=== PATIENT | male | born 1985 | race Caucasian/White ===

== ENCOUNTER 2018-09-01 07:04 | Emergency (ER) | payer SELFPAY ==
[~2018-09-01] VITALS: Ht 185.4 cm; Wt 72.6 kg
[2018-09-01 07:20] VITALS: BP 146/81
--- NOTE | 2018-09-01 08:15 | PHYS DOC ---
Past Medical History Past Medical History: Bipolar Past Surgical History: Other Additional Past Surgical Histo: ANKLE Alcohol Use: Heavy Drug Use: None Adult General Chief Complaint Chief Complaint: MEDICATION REFILL HPI HPI 33-year-old male presents to ER with request for refills on his anxiety and antipsychotic medications. Patient has tried multiple phone calls to family members to get a list of his medications however he has not been able to reach anyone by phone. Patient is uncertain of medications he takes. Patient denies any suicidal ideations. Patient has been anxious during his ER visit however has had no uncontrollable behavior. Patient denies any pain. Patient denies primary care physician. Review of Systems Review of Systems Constitutional: Denies fever or chills [] Eyes: Denies change in visual acuity, redness, or eye pain [] HENT: Denies nasal congestion or sore throat [] Respiratory: Denies cough or shortness of breath [] Cardiovascular: Denies CP/palpitations GI: Denies abdominal pain, nausea, vomiting, or diarrhea [] Integument: Denies rash or skin lesions [] Neurologic: Denies headache, focal weakness or sensory changes [] Psych: Reports anxiety- denies depression/SI All other systems were reviewed and found to be within normal limits, except as documented in this note. Allergies Allergies Allergies Coded Allergies Type Severity Reaction Last Updated Verified No Known Drug Allergies 09/01/18 No Physical Exam Physical Exam Constitutional: Well developed, well nourished, no acute distress, non-toxic appearance. [] HENT: Normocephalic, atraumatic, oropharynx moist, no oral exudates, nose normal. [] Eyes: 4mm PERRLA, no nystagmus, conjunctiva normal, no discharge. [] Neck: Normal range of motion, supple Cardiovascular: Heart rate regular rhythm, no murmur [] Lungs & Thorax: Resp. equal/nonlabored Abdomen: Bowel sounds normal, soft, no tenderness, no masses, no pulsatile masses. [] Skin: Warm, dry, no erythema, no rash. [] Extremities: ROM intact, no edema. [] Neurologic: Alert and oriented X 3, normal motor function, normal sensory function, no focal deficits noted. Steady gait at bedside Psychologic: Affect normal, judgement normal, mood normal. No uncontrollable behavior[] Current Patient Data Vital Signs Vital Signs Date Time Temp Pulse Resp B/P (MAP) Pulse Ox O2 Delivery O2 Flow Rate FiO2 09/01/18 07:20 98.1 100 18 146/81 (102) 98 Room Air 98.1 EKG EKG [] Radiology/Procedures Radiology/Procedures [] Course & Med Decision Making Course & Med Decision Making Pt was provided with phone while in the ER to attempt to contact his family for list of his medications. Patient was unsuccessful in reaching any of his family members. Patient continues to deny any suicidal ideations. Patient is cooperative during his exam. Discussed with no list of medications no refills would be provided at this time. Patient verbalizes understanding on this. Will provide [facility] and physician referral information with discharge paperwork. At time of discharge patient was in no visible distress. Education provided on s&s to return to ER for and discharge instructions were discussed. Staff Physician Addendum: I was working in the ER during the course of this patient's visit. I was available for consultation as needed, but I was not directly involved in the care of this patient. Dragon Disclaimer Dragon Disclaimer This electronic medical record was generated, in whole or in part, using a voice recognition dictation system. Departure Departure Impression: Primary Impression: Medication refill Disposition: HOME, SELF-CARE Condition: STABLE Referrals: NO PCP (PCP) Patient Instructions: Medication Refill, Emergency Department Additional Instructions: As discussed you should keep a list of your medications for refill purposes. Follow up with a primary care physician or local clinic for refill. ANAHI MARQUEZ APRN Sep 01, 2018 08:15 YANELIS GARCIA MD Sep 04, 2018 20:31
== END 2018-09-01 08:52 | disposition home or self-care (01) ==
LOC: ER 07:04
DX: F41.9 Anxiety disorder, unspecified (principal); Z76.0 Encounter for issue of repeat prescription; F31.9 Bipolar disorder, unspecified; F10.20 Alcohol dependence, uncomplicated; Y90.9 Presence of alcohol in blood, level not specified
CPT/HCPCS: 99283